=== PATIENT | male | born 1965 | race Caucasian/White ===

== ENCOUNTER 2016-04-19 13:33 | Emergency (ER) ==
--- NOTE | 2016-04-19 16:50 | PROVIDER DOCUMENTATION ---
HPI-Syncope/Dizziness - General Source: patient - History of Present Illness-Syncope/Dizzy Prior Episodes: reports: remote history Onset/Duration: reports: this afternoon Timing: reports: gone now Position/Activity at time of episode: reports: sitting Symptoms prior to episode: reports: lightheaded, nausea/vomiting (N) Loss of Consciousness: no loss of consciousness Location of injury. (If syncope resulted in an injury.): reports: none Current Symptoms: reports: none/feels normal Similar symptoms previously: reports: previous diagnosis Recently Seen Here or By Another Healthcare Provider: No - Dizziness Severity in ED: reports: mild Dizziness Related Current/Associated Symptoms: reports: none/feels normal Any recent trauma/injury?: reports: none Modifying Factors: improves with: nothing Patient usually:: reports: walks without assistance <Deidra Rueda - Last Filed: 04/19/16 16:45> <John Quezada - Last Filed: 04/19/16 16:57> - General Chief Complaint: Dizziness Stated Complaint: DIZZINESS Time Seen by Provider: 04/19/16 16:31 Allergies/Adverse Reactions: Patient Allergies Allergy/AdvReac Type Severity Reaction Status Date / Time No Known Allergies Allergy Verified 04/19/16 14:13 Home Medications: Home Medication List Medication Instructions Recorded Confirmed Last Taken Type Metformin [Glucophage] 500 mg PO DAILY 04/19/16 04/19/16 Unknown History Nebivolol [Bystolic] 5 mg PO DAILY 04/19/16 04/19/16 Unknown History Sitagliptin [Januvia] 50 mg PO DAILY 04/19/16 04/19/16 Unknown History - History of Present Illness-Syncope/Dizzy Nature of Presenting Problem: Pt is 50 y/o M presents to the ED with vertigo. Pt states was at lunch today and started having N. Pt states has a hx of vertigo. 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 Pt states on his way here took an antivert and all the symptoms went away. (Deidra Rueda) Review of Systems - Adult - REVIEW OF SYSTEMS - ADULT Constitutional: denies: chills, fever Eyes: denies: blurred vision, double vision Ears, Nose, Mouth & Throat: denies: ear pain, nose pain, throat pain Cardiovascular: denies: chest pain, heart murmur, irregular heart rate Respiratory: denies: cough, shortness of breath, wheezing Gastrointestinal: reports: nausea. denies: abdominal pain, diarrhea, vomiting Genitourinary: denies: dysuria, hematuria Musculoskeletal: denies: bone pain, joint pain, neck pain Integumentary: denies: hives, itching Neurological: reports: dizziness/vertigo (dizziness). denies: headache/ migraines Psychiatric: reports: no symptoms reported Endocrine: reports: no symptoms reported Hematologic/Lymphatic: reports: no symptoms reported Allergic/Immunologic: reports: no symptoms reported All Other Systems: Reviewed and Negative <MohitDeidra - Last Filed: 04/19/16 16:45> Past History - Adult - PAST MEDICAL HISTORY-ADULT Review of Records: reports: Nursing Assessment Review, Medications Reviewed, Social history reviewed & non-contributory. Major Childhood Illnesses: reports: denies history Cardiovascular: reports: HTN Respiratory: reports: denies history Gastrointestinal: reports: denies history Obstetrical/Gynecological: reports: denies history Genitourinary: reports: denies history Musculoskeletal: reports: denies history Neurological: reports: denies history Endocrine/Immune: reports: Diabetes Other Conditions: reports: denies history - PRIOR SURGERIES/PROCEDURES Surgical/Procedure History: reports: tonsillectomy - IMMUNIZATION STATUS Childhood Immunizations: See Nurse Assessment Flu Vaccine: See Nurse Assessment - FAMILY HISTORY Family History: reviewed, not pertinent - SOCIAL HISTORY Smoking: denies Substance Use: denies Living Situation: family <Fauzia Ruedaomi - Last Filed: 04/19/16 16:45> Physical Exam-General - PHYSICAL EXAM-ADULT Initial Vital Signs Reviewed: Yes - CONSTITUTIONAL General Appearance: appears well, alert, no apparent distress - EYES Eyes: PERRL/EOMI, pink conjunctivae, fundi clear, no AV nicking - HEAD, EARS, NOSE, MOUTH & THROAT HENMT: normocephalic/atraumatic, moist mucous membranes, normal ENT inspection, TMs normal, pharynx normal - NECK Neck: non-tender, full range of motion, supple, normal inspection - RESPIRATORY Respiratory: chest non-tender, lungs clear, normal breath sounds, no pleuratic chest pain, no respiratory distress, no accessory muscle use - CARDIOVASCULAR Cardiovascular: normal peripheral pulses, regular rate, rhythm, no edema, no gallop, no JVD, no murmur - GASTROINTESTINAL (ABDOMEN) Abdominal Exam: normal bowel sounds, non tender, soft, no organomegaly, no pulsatile mass - LYMPHATIC Lymphatic: no adenopathy - MUSCULOSKELETAL Back Exam: normal inspection, no CVA tenderness, no vertebral tenderness Extremity: normal range of motion, non-tender, normal gait, normal inspection, no pedal edema, no calf tenderness, normal capillary refill - SKIN Integumentary: normal color, normal turgor, warm/dry - NEUROLOGIC Neurologic: grossly normal - PSYCHIATRIC Psych/Mental Status: normal mood/affect, oriented x 3 <Deidra Rueda - Last Filed: 04/19/16 16:45> Progress <Deidra Rueda - Last Filed: 04/19/16 16:45> <John Quezada - Last Filed: 04/19/16 16:57> - PLAN OF CARE/RESULTS Progress/Plan/Lab Results: Vital Signs - 24 hr 04/19/16 14:09 Temperature 98 F Pulse Rate 83 Respiratory 18 Rate Blood Pressure 158/86 O2 Sat by Pulse 99 Oximetry (Deidra Rueda) Vital Signs Temp Pulse Resp BP Pulse Ox 04/19/16 14:09 98 F 83 18 158/86 99 No Known Allergies Allergy (Verified 04/19/16 14:13) Metformin [Glucophage] 500 mg PO DAILY 04/19/16 Nebivolol [Bystolic] 5 mg PO DAILY 04/19/16 Sitagliptin [Januvia] 50 mg PO DAILY 04/19/16 (John Quezada) Departure <Deidra Rueda - Last Filed: 04/19/16 16:45> - Departure Time of Disposition Order: 16:57 Certified Medical Emergency: Urgent <John Quezada - Last Filed: 04/19/16 16:57> - Departure DIAGNOSIS: Vertigo Disposition: HOME 01 Condition: Good Additional Instructions: Follow up with your primary care provider. Return to the ER for any new or worsening symptoms. ED Follow Up Instructions: You have been treated by a care provider in the Emergency Department. These instructions are being provided to you so you can have an understanding of how to care for yourself upon discharge. Upon discharge from the Emergency Department, you are responsible for making arrangements for follow-up care by a physician of your choice. Take all prescribed medications as directed. Return to the Emergency Department immediately for any new or worsening symptoms. You may call the Physician Referral phone number at [phone] to obtain a list of Physicians who are taking new patients. Referrals: David Brush [Primary Care Provider] - Attestation - Scribe Verification/Attestation Scribe:: Deidra Rueda Acting as Scribe for:: John Quezada Scribe documention review:: This chart was documented by a scribe and accurately reflects the service the provider performed and the decisions made by the provider. <Deidra Rueda - Last Filed: 04/19/16 16:45> - Physician/ KRISH Attestation Patient care was provided by Advanced Practice Provider:: Yes Advanced Practice Provider:: John Quezada Advanced Practice Provider documentation review:: The Mid-level provider documentation, treatment plan and medical decision making was reviewed by the physician who agrees with all treatment and medical decision making by the MLP. <John Quezada - Last Filed: 04/19/16 16:57> Physician Attestation
[2016-04-19 18:00] VITALS: BP 148/78
== END 2016-04-19 17:15 | disposition home or self-care (01) ==
LOC: P.ED 13:33
DX: R42 Dizziness and giddiness (principal); R11.0 Nausea; I10 Essential (primary) hypertension; E11.9 Type 2 diabetes mellitus without complications; Z79.899 Other long term (current) drug therapy
CPT/HCPCS: 82948